=== PATIENT | male | born 1955 | race Two or more races ===

== ENCOUNTER 2018-05-20 19:02 | Emergency (ER) | payer SELFPAY ==
[~2018-05-20] VITALS: Ht 177.8 cm; Wt 79.4 kg
[2018-05-20] MEDS ORDERED: Isovue-300 100ml vial INJ PRN (19:15)
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
[2018-05-20 19:45] LABS: BASOPHILS % (AUTO) 1.3 % (0.0-2.0); EOSINOPHILS % (AUTO) 5.3 % (0.0-3.0); HEMATOCRIT 43.6 % (42.0-52.0); LYMPHOCYTES % (AUTO) 46.4 % (20.0-45.0); MEAN CORPUSCULAR VOLUME 93 FL (80-99); MONOCYTES % (AUTO) 6.6 % (1.0-10.0); NEUTROPHILS % (AUTO) 40.4 % (45.0-75.0); PLATELET COUNT 248 K/UL (150-450); RED BLOOD COUNT 4.69 M/UL (4.70-6.10); RED CELL DISTRIBUTION WIDTH 11.1 % (11.6-14.8); WHITE BLOOD COUNT 4.5 K/UL (4.8-10.8)
[2018-05-20 19:50] VITALS: BP 136/77
[2018-05-20 19:56] LABS: ANION GAP 12 mmol/L (5-15); BLOOD UREA NITROGEN 10 mg/dL (7-18); CALCIUM 8.7 MG/DL (8.5-10.1); CARBON DIOXIDE 26 MMOL/L (21-32); CHLORIDE 103 MMOL/L (98-107); CREATININE 0.7 MG/DL (0.55-1.30); POTASSIUM 3.9 MMOL/L (3.5-5.1); SODIUM 141 MMOL/L (136-145)
[2018-05-20 19:59] LABS: APPEARANCE,URINE CLEAR; BILIRUBIN, URINE NEGATIVE (NEGATIVE); COLOR,URINE PALE YELLOW; GLUCOSE, URINE (UA) NEGATIVE (NEGATIVE); KETONES,URINE NEGATIVE (NEGATIVE); LEUKOCYTE ESTERASE ,URINE NEGATIVE (NEGATIVE); NITRITE,URINE NEGATIVE (NEGATIVE); PH,URINE 5 (4.5-8.0); PROTEIN,URINE NEGATIVE (NEGATIVE); UROBILINOGEN,URINE NORMAL MG/DL (0.0-1.0)
[2018-05-20 20:02] LABS: ALANINE AMINOTRANSFERASE 51 U/L (12-78); ALBUMIN/GLOBULIN RATIO 0.8 (1.0-2.7); ALKALINE PHOSPHATASE 167 U/L (46-116); ASPARTATE AMINO TRANSFERASE 50 U/L (15-37); BILIRUBIN,TOTAL 0.3 MG/DL (0.2-1.0); CREATINE KINASE 158 U/L (26-308)
[2018-05-20 20:04] LABS: INR 1.2 (0.9-1.1)
[2018-05-20 21:30] VITALS: BP 130/76
[2018-05-20 23:37] VITALS: BP 122/77
[2018-05-21 03:21] VITALS: BP 123/76
[2018-05-21 05:15] VITALS: BP 125/74
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
--- NOTE | 2018-05-21 11:31 | Diagnostic Imaging Report ---
Indication: Chest pain Technique: One view of the chest Comparison: None Findings: The heart is borderline enlarged. The lungs and pleural spaces are clear. Impression: Borderline cardiomegaly. No acute process
--- NOTE | 2018-05-21 16:57 | Cardiology Report ---
APPROVED REPORT EKG Measurement Heart [id number] Sinus tachycardia Rightward axis Possible Anterior infarct, age undetermined Abnormal ECG
== END 2018-05-21 05:15 | disposition home or self-care (01) ==
LOC: EDBD 19:02 → EMR 19:30 → EDBD 19:30 → EMR 05-21 05:15
DX: R40.4 Transient alteration of awareness (principal); F10.99 Alcohol use, unspecified with unspecified alcohol-induced disorder; K22.5 Diverticulum of esophagus, acquired; R07.9 Chest pain, unspecified; V89.2XXA Person injured in unspecified motor-vehicle accident, traffic, initial encounter; Y92.488 Other paved roadways as the place of occurrence of the external cause
CPT/HCPCS: 36415; 70450; 71045; 71260; 72125; 74177; 80053; 80307; 81003; 82550; 84484; 85025; 85610; 85730; 93005; 99283; G0480; Q9967; 80329